=== PATIENT | female | born 1950 | race African-American/Black ===

== ENCOUNTER 2020-02-19 19:35 | Inpatient (IN) | payer MEDICARE, MEDICAID ==
[~2020-02-19] VITALS: Ht 180.3 cm; Wt 107.0 kg
--- NOTE | 2020-02-19 20:04 | Emergency Room Report ---
History of Present Illness General Chief Complaint: Palpitations Source: Patient Present Illness HPI 69-year-old female with history of lung cancer here with palpitations. The patient says that she was walking from her bathroom when she felt sudden onset of palpitations. The patient wears a pulse ox monitor that also has a heart rate monitor on it and says that her heart rate read 200 bpm. Says she had this before years ago and it resolved spontaneously. Patient says that this episode lasted several minutes before self resolving. Denies fevers, chills, chest pain, cough, shortness of breath, back pain, abdominal pain, nausea, vomiting, diarrhea, dysuria. 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: No Patient History Now: No Nursing Documentation-PMH Hx Cardiac Problems: Yes - 2 stents in 2019 Hx Hypertension: Yes Hx COPD: Yes Review of Systems All Other Systems: negative except mentioned in HPI Physical Exam Vital Signs Date Time Temp Pulse Resp B/P (MAP) Pulse Ox O2 Delivery O2 Flow Rate FiO2 02/19/20 19:36 97.9 129 20 182/93 (122) 97 Room Air Sp02 EP Interpretation: reviewed, normal General Appearance: no apparent distress, alert, non-toxic Head: normocephalic, atraumatic Eyes: bilateral eye normal inspection, bilateral eye PERRL ENT: hearing grossly normal, normal pharynx, no angioedema, normal voice Neck: full range of motion, supple/symm/no masses Respiratory: chest non-tender, lungs clear, normal breath sounds, speaking full sentences, other - Diffuse crackles in all lung felix Cardiovascular #1: no edema, other - Tachycardic 123 beats per minute. Regular rhythm Cardiovascular #2: 2+ carotid (R), 2+ carotid (L), 2+ radial (R), 2+ radial (L), 2+ dorsalis pedis (R), 2+ dorsalis pedis (L) Gastrointestinal: normal bowel sounds, non tender, soft, non-distended, no guarding, no rebound Rectal: deferred Genitourinary: normal inspection, no CVA tenderness Musculoskeletal: back normal, normal range of motion, gait/station normal, non- tender Neurologic: alert, motor strength/tone normal, oriented x3, sensory intact, responsive, speech normal Psychiatric: judgement/insight normal, memory normal, mood/affect normal, no suicidal/homicidal ideation Lymphatic: no adenopathy Medical Decision Making Diagnostic Impression: Primary Impression: Low oxygen saturation Additional Impressions: Palpitations Pulmonary nodules ER Course Total critical care time: Approximately 45 minutes Due to a high probability of clinically significant, life threatening deterioration, the patient required the highest level of preparedness to intervene emergently and I personally spent this critical care time directly and personally managing the patient. This critical care time included obtaining a history, examining the patient, pulse oximetry, ordering and reviewing studies, ordering treatments, evaluating response to treatment and updating management plan as needed, frequent reassessment and discussion with other providers as well as arranging for ultimate disposition. This critical to care time was performed to assess and manage the high probability of life-threatening deterioration that could result in multiorgan failure. This critical care time is separate from the separately billable procedures and treating other patients. EKG: Sinus rhythm, no ischemia, intervals WNL. No ectopy. Rate 123 bpm Rhythm strip: patient monitored for arrhythmias - no malignant dysrhythmias, runs of PVCs, nor pauses noted Laboratory Tests Test 02/19/20 19:50 White Blood Count 11.8 K/UL (4.8-10.8) H Red Blood Count 4.21 M/UL (4.20-5.40) Hemoglobin 10.7 G/DL (12.0-16.0) L Hematocrit 34.4 % (37.0-47.0) L Mean Corpuscular Volume 82 FL (80-99) Mean Corpuscular Hemoglobin 25.3 PG (27.0-31.0) L Mean Corpuscular Hemoglobin Concent 31.1 G/DL (32.0-36.0) L Red Cell Distribution Width 18.8 % (11.6-14.8) H Platelet Count 264 K/UL (150-450) Mean Platelet Volume 9.1 FL (6.5-10.1) Neutrophils (%) (Auto) 68.0 % (45.0-75.0) Lymphocytes (%) (Auto) 24.1 % (20.0-45.0) Monocytes (%) (Auto) 5.4 % (1.0-10.0) Eosinophils (%) (Auto) 1.4 % (0.0-3.0) Basophils (%) (Auto) 1.1 % (0.0-2.0) D-Dimer Pending Sodium Level 140 MMOL/L (136-145) Potassium Level 4.4 MMOL/L (3.5-5.1) Chloride Level 105 MMOL/L (98-107) Carbon Dioxide Level 27 MMOL/L (21-32) Anion Gap 8 mmol/L (5-15) Blood Urea Nitrogen 20 mg/dL (7-18) H Creatinine 1.8 MG/DL (0.55-1.30) H Estimated Glomerular Filtration Rate 33.9 mL/min (>60) Glucose Level 128 MG/DL (74-106) H Calcium Level 8.9 MG/DL (8.5-10.1) Total Bilirubin 0.2 MG/DL (0.2-1.0) Aspartate Amino Transferase (AST) 17 U/L (15-37) Alanine Aminotransferase (ALT) 17 U/L (12-78) Alkaline Phosphatase 99 U/L (46-116) Troponin I 0.000 ng/mL (0.000-0.056) Total Protein 8.2 G/DL (6.4-8.2) Albumin 3.2 G/DL (3.4-5.0) L Globulin 5.0 g/dL Albumin/Globulin Ratio 0.6 (1.0-2.7) L Chest x-ray: Indication shortness of breath: Many pulmonary nodules scattered throughout bilateral lung felix with some mild pulmonary vascular congestion. No consolidations. No bony abnormalities. No free air under the diaphragm 69-year-old female with a known history of lung and ovarian cancer here with palpitations and shortness of breath. Patient says that she was on oxygen monitor at home and said that she felt the sudden onset of palpitations at her monitor said that her heart rate was around 200 bpm. This lasted for few minutes before self resolving. Here in the emergency department the patient had a heart rate of 120 to 130 bpm. This was normal sinus rhythm. Patient was given 1 L of IV normal saline with good resolution of her tachycardia. Blood pressure remained stable throughout her stay in the emergency department. Patient says that she wears oxygen monitor because she frequently has desaturations. Here in the emergency department the patient had a desaturation into the high 60s. She was immediately put on a 5 L nasal cannula with good resolution of her hypoxia. Patient says that this does happen frequently to her. During this episode she did not exhibit any acute distress and the rest of her vital signs remained stable. Troponin negative. CBC and CMP were largely unremarkable. EKG was normal aside from the sinus tachycardia. Patient admitted to telemetry. Last Vital Signs Date Time Temp Pulse Resp B/P (MAP) Pulse Ox O2 Delivery O2 Flow Rate FiO2 02/19/20 19:36 97.9 129 20 182/93 (122) 97 Room Air Avinash Lenz M.D. Feb 19, 2020 20:04
[2020-02-19 20:19] LABS: CALCIUM 8.9 MG/DL (8.5-10.1); CREATININE 1.8 MG/DL (0.55-1.30); POTASSIUM 4.4 MMOL/L (3.5-5.1)
[2020-02-19 20:24] LABS: ALBUMIN 3.2 G/DL (3.4-5.0); ALBUMIN/GLOBULIN RATIO 0.6 (1.0-2.7); BILIRUBIN,TOTAL 0.2 MG/DL (0.2-1.0)
[2020-02-19 20:26] VITALS: BP 152/78
[2020-02-19 20:43] LABS: BASOPHILS % (AUTO) 1.1 % (0.0-2.0); EOSINOPHILS % (AUTO) 1.4 % (0.0-3.0); HEMATOCRIT 34.4 % (37.0-47.0); HEMOGLOBIN 10.7 G/DL (12.0-16.0); LYMPHOCYTES % (AUTO) 24.1 % (20.0-45.0); MEAN CORPUSCULAR VOLUME 82 FL (80-99); MONOCYTES % (AUTO) 5.4 % (1.0-10.0); PLATELET COUNT 264 K/UL (150-450); RED BLOOD COUNT 4.21 M/UL (4.20-5.40); RED CELL DISTRIBUTION WIDTH 18.8 % (11.6-14.8); WHITE BLOOD COUNT 11.8 K/UL (4.8-10.8)
[2020-02-19 21:40] VITALS: BP 148/76
[2020-02-19] MEDS ORDERED: CRESTOR40 MG ORAL (21:54)
[2020-02-19] MEDS ORDERED: ASPIRIN81 MG ORAL (21:54)
[2020-02-19] MEDS ORDERED: GABAPENTIN600 MG ORAL (21:54)
[2020-02-19] MEDS ORDERED: GLIPIZIDE5 MG ORAL (21:54)
[2020-02-19] MEDS ORDERED: Heparin 5000 units/ml inj SUBQ SCH (22:00)
[2020-02-19] MEDS ORDERED: oxyCODONE HCL/Acetaminophen 5/325mg ORAL ONE (22:15)
[2020-02-20] MEDS: HYDROcodone/Acetamin 5/325 tab ORAL PRN ×2 (03:45→10:48)
[2020-02-20 04:00] VITALS: BP 139/69
[2020-02-20] MEDS ORDERED: Heparin 25,000u/D5W 500ml 500 ML IV SCH ×2 (05:15→15:30)
[2020-02-20 05:43] LABS: BASOPHILS % (AUTO) 4.7 % (0.0-2.0); EOSINOPHILS % (AUTO) 1.2 % (0.0-3.0); HEMATOCRIT 37.3 % (37.0-47.0); HEMOGLOBIN 10.8 G/DL (12.0-16.0); LYMPHOCYTES % (AUTO) 13.4 % (20.0-45.0); MEAN CORPUSCULAR VOLUME 86 FL (80-99); MONOCYTES % (AUTO) 8.4 % (1.0-10.0); NEUTROPHILS % (AUTO) 72.3 % (45.0-75.0); PLATELET COUNT 225 K/UL (150-450); RED BLOOD COUNT 4.31 M/UL (4.20-5.40); RED CELL DISTRIBUTION WIDTH 18.2 % (11.6-14.8); WHITE BLOOD COUNT 9.8 K/UL (4.8-10.8)
[2020-02-20] MEDS: GlipiZIDE 5mg tab ORAL SCH ×3 (06:01→16:57)
[2020-02-20 08:00] VITALS: BP 146/70
[2020-02-20] MEDS: dilTIAZem HCl 60mg tab ORAL SCH ×3 (08:21→16:56)
[2020-02-20] MEDS: Aspirin Baby 81mg ORAL SCH (08:21)
[2020-02-20] MEDS ORDERED: Aspirin Baby 81mg ORAL SCH (09:00)
[2020-02-20 11:49] VITALS: BP 148/77
--- NOTE | 2020-02-20 12:14 | Cardiac Electrophysiology PN ---
Subjective Subjective [id number] Objective Last 24 Hour Vital Signs Date Time Temp Pulse Resp B/P (MAP) Pulse Ox O2 Delivery O2 Flow Rate FiO2 02/20/20 11:49 97.5 60 18 148/77 (100) 94 02/20/20 11:15 98.1 02/20/20 09:00 Nasal Cannula 2.0 02/20/20 08:21 87 146/70 02/20/20 08:00 80 02/20/20 08:00 98.1 84 18 146/70 (95) 97 02/20/20 04:00 71 02/20/20 04:00 97.3 79 20 139/69 (92) 97 02/20/20 01:24 97.9 93 18 134/84 98 Nasal Cannula 02/20/20 01:07 Nasal Cannula 2.0 02/19/20 22:46 97.9 02/19/20 21:40 97.9 93 18 148/76 98 Nasal Cannula 02/19/20 20:26 97.9 105 23 152/78 98 Nasal Cannula 02/19/20 19:36 97.9 129 20 182/93 (122) 97 Room Air Intake and Output 02/19/20 02/20/20 19:00 07:00 # Voids 1 Laboratory Tests Test 02/19/20 19:50 02/20/20 02:37 White Blood Count 11.8 K/UL (4.8-10.8) H 9.8 K/UL (4.8-10.8) Red Blood Count 4.21 M/UL (4.20-5.40) 4.31 M/UL (4.20-5.40) Hemoglobin 10.7 G/DL (12.0-16.0) L 10.8 G/DL (12.0-16.0) L Hematocrit 34.4 % (37.0-47.0) L 37.3 % (37.0-47.0) Mean Corpuscular Volume 82 FL (80-99) 86 FL (80-99) Mean Corpuscular Hemoglobin 25.3 PG (27.0-31.0) L 25.0 PG (27.0-31.0) L Mean Corpuscular Hemoglobin Concent 31.1 G/DL (32.0-36.0) L 29.0 G/DL (32.0-36.0) L Red Cell Distribution Width 18.8 % (11.6-14.8) H 18.2 % (11.6-14.8) H Platelet Count 264 K/UL (150-450) 225 K/UL (150-450) Mean Platelet Volume 9.1 FL (6.5-10.1) 9.2 FL (6.5-10.1) Neutrophils (%) (Auto) 68.0 % (45.0-75.0) 72.3 % (45.0-75.0) Lymphocytes (%) (Auto) 24.1 % (20.0-45.0) 13.4 % (20.0-45.0) L Monocytes (%) (Auto) 5.4 % (1.0-10.0) 8.4 % (1.0-10.0) Eosinophils (%) (Auto) 1.4 % (0.0-3.0) 1.2 % (0.0-3.0) Basophils (%) (Auto) 1.1 % (0.0-2.0) 4.7 % (0.0-2.0) H D-Dimer 0.56 mg/L FEU (0.00-0.49) H Sodium Level 140 MMOL/L (136-145) Potassium Level 4.4 MMOL/L (3.5-5.1) Chloride Level 105 MMOL/L (98-107) Carbon Dioxide Level 27 MMOL/L (21-32) Anion Gap 8 mmol/L (5-15) Blood Urea Nitrogen 20 mg/dL (7-18) H Creatinine 1.8 MG/DL (0.55-1.30) H Estimat Glomerular Filtration Rate 33.9 mL/min (>60) Glucose Level 128 MG/DL (74-106) H Calcium Level 8.9 MG/DL (8.5-10.1) Total Bilirubin 0.2 MG/DL (0.2-1.0) Aspartate Amino Transf (AST/SGOT) 17 U/L (15-37) Alanine Aminotransferase (ALT/SGPT) 17 U/L (12-78) Alkaline Phosphatase 99 U/L (46-116) Troponin I 0.000 ng/mL (0.000-0.056) Total Protein 8.2 G/DL (6.4-8.2) Albumin 3.2 G/DL (3.4-5.0) L Globulin 5.0 g/dL Albumin/Globulin Ratio 0.6 (1.0-2.7) L Prothrombin Time 11.0 SEC (9.30-11.50) Prothromb Time International Ratio 1.0 (0.9-1.1) Activated Partial Thromboplast Time 32 SEC (23-33) Microbiology Date/Time Source Procedure Growth Status 02/19/20 21:30 Nasopharynx SARS-CoV-2 RdRp Gene Assay - Final Complete Cuco Garcia MD Feb 20, 2020 12:14
[2020-02-20] MEDS ORDERED: PENTOXIFYLLINE400 M1 ORAL (14:31)
[2020-02-20] MEDS ORDERED: ASPIRIN-LOW81 MG ORAL (14:31)
[2020-02-20] MEDS ORDERED: GABAPENTIN600 MG ORAL (14:31)
[2020-02-20] MEDS ORDERED: PERCOCET 5-3251 EACH ORAL (14:31)
[2020-02-20] MEDS ORDERED: CLOPIDOGREL75 MG ORAL (14:31)
[2020-02-20] MEDS ORDERED: DIAZEPAM10 MG ORAL (14:31)
[2020-02-20] MEDS ORDERED: NATEGLINIDE60 MG ORAL (14:31)
[2020-02-20] MEDS ORDERED: VITAMIN D250 MC1 ORAL (14:31)
[2020-02-20] MEDS ORDERED: PRAVASTATIN SOD80 M1 ORAL (14:31)
[2020-02-20] MEDS ORDERED: OMEPRAZOLE20 M4 ORAL (14:31)
[2020-02-20] MEDS ORDERED: METOPROLOL TART25 MG ORAL (14:31)
[2020-02-20] MEDS ORDERED: GLIPIZIDE5 MG ORAL (14:31)
--- NOTE | 2020-02-20 15:29 | Diagnostic Imaging Report ---
Indication: Shortness of breath Technique: One view of the chest Comparison: 01/23/2016 Findings: Lungs and pleural spaces are clear. Heart size is normal. No significant change Impression: No acute process
[2020-02-20 15:55] VITALS: BP 120/59
[2020-02-20] MEDS: oxyCODONE HCL/Acetaminophen 5/325mg ORAL PRN ×2 (16:57→23:23)
--- NOTE | 2020-02-20 17:30 | History and Physical Report ---
DATE OF ADMISSION: 02/19/2020 HISTORY OF PRESENT ILLNESS: This is a 69-year-old female came with palpitation for few days prior to admission. Patient denies any fever or chills. Patient was found AFib with rapid ventricular rate with heart rates over 200, given adenosine and the heart rate is controlled. Patient is currently doing better. No distress. PAST MEDICAL HISTORY: Significant for coronary artery disease, AFib, diabetes. MEDICATIONS: Patient is on Lipitor, diltiazem, gabapentin, glipizide, aspirin, Neurontin. SOCIAL HISTORY: Patient lives by herself. Quit smoking about a few years ago. REVIEW OF SYSTEMS: Generalized weakness, tired. Recurrent palpitation in the bed. Overweight. PHYSICAL EXAMINATION: VITAL SIGNS: Blood pressure is 148/77, pulse 67, respirations 18, temperature 97.5. HEENT: AT/NC. Mild PERRLA. NECK: Supple. No JVD. CHEST: Bilateral decreased breath sounds. CARDIOVASCULAR: Regular rhythm. Tachycardia is resolved. ABDOMEN: Soft. Positive bowel sounds. EXTREMITIES: No edema. GENITOURINARY: Deferred. LABORATORY DATA: White count 12,000, hemoglobin 11, hematocrit 37, platelets are 225. Chemistry panel, sodium 140, potassium 4.4, BUN 20, creatinine 1.8. Troponins are negative. Albumin is 3.2. EKG, AFib with rapid ventricular rate. Chest x-ray showing no acute disease. Her arterial studies because patient was complaining pain on both legs. Common femoral artery normal limits bilaterally. Mild inflow disease bilaterally. ASSESSMENT: 1. AFib with rapid ventricular rate. 2. Hypertension. 3. Hyperlipidemia. 4. Leg pain. PLAN: We will currently continue current treatment. Continue Lipitor, oxycodone, gabapentin, aspirin, diltiazem, glipizide. Consider Cardiology consult. Patient probably may need a stress test. Stefano Cadena M.D. DR: MÓNICA JOB#: [id number] CC:
--- NOTE | 2020-02-20 19:00 | Consultation ---
DATE OF CONSULTATION: 02/20/2020 CARDIOLOGY CONSULTATION CONSULTING PHYSICIAN: Cuco Garcia MD. REFERRING PHYSICIAN: Ajit Cadena MD. REASON FOR CONSULTATION: Tachycardia with heart rate up to 200. HISTORY OF PRESENT ILLNESS: The patient is a 69-year-old lady with history of hypertension and lung cancer, who is scheduled to undergo lymph node biopsy by Dr. Iván Shepard on at [facility]. The patient also stated that she had a preop evaluation at [facility] [place] by Dr. Davis and underwent an echocardiogram and stress test just last week. The patient was walking from her bathroom and she suddenly felt palpitation and her pulse oximeter that showed heart rate was up to 200 beats per minute. The patient had similar episode about a year ago that was resolved. This episode lasted several minutes before it resolved. The patient in the emergency room had a heart rate of 120 to 130 beats per minute, was in sinus rhythm. She received one liter of normal saline with resolution of tachycardia. In the emergency room, the patient's blood pressure was also high as 182/93. Troponin was negative. REVIEW OF SYSTEMS: Negative other than what was mentioned in history of present illness. PAST MEDICAL HISTORY: As mentioned above. FAMILY HISTORY: Noncontributory. SOCIAL HISTORY: She does not smoke or drink alcohol. PHYSICAL EXAMINATION: VITAL SIGNS: Blood pressure of 140/77, pulse 67, respirations 18, and she is afebrile. HEAD AND NECK: Shows no JVD. LUNGS: Clear. CARDIOVASCULAR: Regular S1 and S2 with no gallop or murmur. ABDOMEN: Soft. EXTREMITIES: No pitting edema. DIAGNOSTIC DATA: Her chest x-ray showed no acute disease. ASSESSMENT AND PLAN: 1. Episodes of palpitation. Etiology is not clear at this time as it was not documented. We will watch the patient on telemetry. We will get thyroid function test and get an echocardiogram for further evaluation. In the meantime, continue the patient on Cardizem 60 mg three times daily. 2. Hyperlipidemia, on Lipitor. 3. History of lung cancer. She is scheduled for biopsy by Dr. Shepard on 03/06/2020 and had a preop evaluation at [facility] with an echo and stress test. Thank you very much for allowing me to participate in the care of this patient. Please do not hesitate to contact me for any questions regarding my evaluation. Cuco Garcia M.D. DR: Beau JOB#: [id number] CC:
[2020-02-20 20:00] VITALS: BP 121/57
[2020-02-20] MEDS: Atorvastatin 80mg tab ORAL SCH (20:47)
[2020-02-20] MEDS: Heparin 25,000u/D5W 500ml 500 ML IV SCH (23:31)
[2020-02-21] VITALS: BP 128/62
--- NOTE | 2020-02-21 | Consultation ---
DATE OF CONSULTATION: CONSULTING PHYSICIAN: Chiki George M.D. HISTORY OF PRESENT ILLNESS: This is a 69-year-old female with a history of anxiety disorder on Valium, who has been admitted to the hospital for medical stabilization. The patient is AFib. The patient also has anxiety, difficulty sleeping. She stated she takes Valium outside of the hospital. Thought content, anxiety and no suicide attempt. No psychiatric hospitalization. PAST MEDICAL HISTORY: Coronary artery disease, AFib, diabetes. ALLERGIES: No known drug allergies. SUBSTANCE ABUSE HISTORY: Significant for smoking in the past. No alcohol use. MENTAL STATUS EXAMINATION: Alert and oriented times self, place, and situation. Mood is anxious. Affect is blunted, congruent with mood. Thought process is concrete. Thought content, no suicidal or homicidal ideation. Cognition is intact. Insight and judgment is fair. ASSESSMENT: [place] I Anxiety disorder. [place] II Deferred. [place] III Diabetes. [place] IV Low. [place] V 50. PLAN: 1. We will start the patient on Valium 10 mg daily. 2. Provide the patient with reality orientation and supportive therapy. Chiki George M.D. DR: NOAH JOB#: [id number] CC:
[2020-02-21 04:00] VITALS: BP 125/64
--- NOTE | 2020-02-21 04:07 | Cardiology Report ---
APPROVED REPORT EXAM: Two-dimensional and M-mode echocardiogram with Doppler and color Doppler. INDICATION SUPRAVENTRIC TACHY M-Mode DIMENSIONS IVSd0.6 (0.7-1.1cm)Left Atrium (MM)3.5 (1.6-4.0cm) LVDd4.0 (3.5-5.6cm)Aortic Root3.1 (2.0-3.7cm) PWd1.0 (0.7-1.1cm)Aortic Cusp Exc.1.8 (1.5-2.0cm) IVSs0.9 cm LVDs2.9 (2.5-4.0cm) PWs1.5 cm <Conclusion> Normal left ventricular chamber size, systolic function and wall motion. Left ventricular ejection fraction estimated to be 55-60%. No evidence of left ventricular hypertrophy. No evidence of pericardial effusion. All other cardiac chamber sizes are within normal limits. Calcification of aortic valve with adequate cusp excursion. Thickened mitral valve leaflets with normal excursion. Mitral annulus and aortic root calcification. Pulmonic valve not well visualized. Normal tricuspid valve structure. IVC at normal size with physiologic collapse. A color flow and spectral Doppler study was performed and revealed: No aortic insufficiency. Mild mitral regurgitation. Mitral inflow indicates normal left ventricular diastolic function. Mild tricuspid regurgitation. Tricuspid systolic velocities suggests peak right ventricular systolic pressure of 44 mmHg, consistent with mild pulmonary hypertension.
--- NOTE | 2020-02-21 04:14 | Cardiology Report ---
APPROVED REPORT EKG Measurement Heart [id number] VT [id number] <Conclusion> Sinus tachycardia Nonspecific ST abnormality Abnormal ECG
[2020-02-21] MEDS: oxyCODONE HCL/Acetaminophen 5/325mg ORAL PRN ×3 (05:29→18:13)
[2020-02-21] MEDS: GlipiZIDE 5mg tab ORAL SCH ×3 (05:29→17:27)
[2020-02-21 06:01] LABS: CREATININE 1.6 MG/DL (0.55-1.30); POTASSIUM 4.3 MMOL/L (3.5-5.1)
[2020-02-21 08:00] VITALS: BP 129/72
[2020-02-21] MEDS: Aspirin Baby 81mg ORAL SCH (08:08)
[2020-02-21] MEDS: dilTIAZem HCl 60mg tab ORAL SCH ×3 (08:08→17:27)
--- NOTE | 2020-02-21 08:58 | General Progress Note ---
Subjective Allergies: Coded Allergies: No Known Allergies (Unverified , 07/29/12) Subjective sob better Objective Last 24 Hour Vital Signs Date Time Temp Pulse Resp B/P (MAP) Pulse Ox O2 Delivery O2 Flow Rate FiO2 02/21/20 08:08 76 124/74 02/21/20 04:00 60 02/21/20 04:00 98.1 81 20 125/64 (84) 95 02/21/20 00:00 63 02/21/20 00:00 99.8 63 20 128/62 (84) 95 02/20/20 21:00 Nasal Cannula 2.0 02/20/20 20:00 72 02/20/20 20:00 96.4 72 20 121/57 (78) 95 02/20/20 17:25 98.1 02/20/20 16:56 79 120/59 02/20/20 16:00 76 02/20/20 15:55 98.1 79 18 120/59 (79) 97 02/20/20 12:55 67 148/77 02/20/20 12:00 67 02/20/20 11:49 97.5 60 18 148/77 (100) 94 02/20/20 11:15 98.1 02/20/20 09:00 Nasal Cannula 2.0 Intake and Output 02/20/20 02/21/20 19:00 07:00 Intake Total 950 ml 149.8 ml Output Total 1150 ml Balance -200 ml 149.8 ml Intake Oral 950 ml IV Total 149.8 ml Output Urine Total 1150 ml # Voids 2 Laboratory Tests 02/20/20 12:45: Activated Partial Thromboplast Time > 150*H 02/20/20 21:20: Activated Partial Thromboplast Time > 150*H 02/21/20 04:50: Activated Partial Thromboplast Time 83H, Sodium Level 138, Potassium Level 4.3, Chloride Level 104, Carbon Dioxide Level 28, Anion Gap 6, Blood Urea Nitrogen 15, Creatinine 1.6H, Estimat Glomerular Filtration Rate 38.9, Glucose Level 93, Calcium Level 9.0, Troponin I 0.003, Pro-B-Type Natriuretic Peptide 237H, Thyroid Stimulating Hormone (TSH) 0.998, Free Thyroxine 1.34 Height (Feet): 5 Height (Inches): 11.00 Weight (Pounds): 236 General Appearance: alert EENT: PERRL/EOMI Neck: supple Cardiovascular: regular rhythm Respiratory/Chest: crackles/rales Abdomen: non tender, soft Extremities: non-tender Edema: trace edema Skin: warm/dry Assessment/Plan Assessment/Plan: 1 chf 2 copd 3 htn 4djd cardiac w/u in progress cont current tx fluid and salt restriction Ajit Cadena MD Feb 21, 2020 08:58
[2020-02-21] MEDS ORDERED: BREO ELLIPTA 21 EACH IH (09:37)
[2020-02-21] MEDS ORDERED: SPIRIVA18 MCG INH (09:37)
[2020-02-21 12:00] VITALS: BP 120/67
--- NOTE | 2020-02-21 15:50 | Cardiac Electrophysiology PN ---
Assessment/Plan Assessment/Plan 1. Episodes of palpitation/ SVT at rate 200?. Etiology is not clear at this time as it was not documented. We will watch the patient on telemetry. EF 60% On Cardizem 60 mg three times daily. 2. Hyperlipidemia, on Lipitor. 3. History of lung cancer. She is scheduled for biopsy by Dr. Shepard on 03/06/2020 and had a preop evaluation at [facility] with an echo and stress test.FU with hem/onc DW RN Subjective Subjective Alert in NAD. No CP or SOB. No recurrence of SVT Objective Last 24 Hour Vital Signs Date Time Temp Pulse Resp B/P (MAP) Pulse Ox O2 Delivery O2 Flow Rate FiO2 02/21/20 12:15 79 120/74 02/21/20 12:00 69 02/21/20 12:00 98.3 79 19 120/67 (84) 95 02/21/20 09:00 Nasal Cannula 2.0 02/21/20 08:08 76 124/74 02/21/20 08:00 97.7 77 20 129/72 (91) 95 02/21/20 08:00 67 02/21/20 04:00 60 02/21/20 04:00 98.1 81 20 125/64 (84) 95 02/21/20 00:00 63 02/21/20 00:00 99.8 63 20 128/62 (84) 95 02/20/20 21:00 Nasal Cannula 2.0 02/20/20 20:00 72 02/20/20 20:00 96.4 72 20 121/57 (78) 95 02/20/20 17:25 98.1 02/20/20 16:56 79 120/59 02/20/20 16:00 76 02/20/20 15:55 98.1 79 18 120/59 (79) 97 Intake and Output 02/20/20 02/21/20 19:00 07:00 Intake Total 950 ml 149.8 ml Output Total 1150 ml Balance -200 ml 149.8 ml Intake Oral 950 ml IV Total 149.8 ml Output Urine Total 1150 ml # Voids 2 Laboratory Tests Test 02/20/20 21:20 02/21/20 04:50 Activated Partial Thromboplast Time > 150 SEC (23-33) *H 83 SEC (23-33) H Sodium Level 138 MMOL/L (136-145) Potassium Level 4.3 MMOL/L (3.5-5.1) Chloride Level 104 MMOL/L (98-107) Carbon Dioxide Level 28 MMOL/L (21-32) Anion Gap 6 mmol/L (5-15) Blood Urea Nitrogen 15 mg/dL (7-18) Creatinine 1.6 MG/DL (0.55-1.30) H Estimat Glomerular Filtration Rate 38.9 mL/min (>60) Glucose Level 93 MG/DL (74-106) Calcium Level 9.0 MG/DL (8.5-10.1) Troponin I 0.003 ng/mL (0.000-0.056) Pro-B-Type Natriuretic Peptide 237 pg/mL (0-125) H Thyroid Stimulating Hormone (TSH) 0.998 uiU/mL (0.358-3.740) Free Thyroxine 1.34 NG/DL (0.76-1.46) Microbiology Date/Time Source Procedure Growth Status 02/19/20 21:30 Nasopharynx SARS-CoV-2 RdRp Gene Assay - Final Complete Objective HEAD AND NECK: Shows no JVD. LUNGS: Clear. CARDIOVASCULAR: Regular S1 and S2 with no gallop or murmur. ABDOMEN: Soft. EXTREMITIES: No pitting edema. Cuco Garcia MD Feb 21, 2020 15:49
[2020-02-21 16:00] VITALS: BP 125/71
--- NOTE | 2020-02-21 19:00 | Consultation ---
DATE OF CONSULTATION: 02/21/2020 PULMONARY CONSULTATION REASON FOR CONSULTATION: Lung mass, history of advanced COPD. HISTORY OF PRESENT ILLNESS: This is a 69-year-old female who presents with palpitations. The patient was admitted on 02/19/2020. The patient denied any fevers or chills. She was found to have rapid atrial fibrillation. The patient is now better rate controlled. The patient's care was discussed and reviewed. The patient does have a long-standing history of lung disease, recently found to have a lung mass as well as a pelvic mass and was planned to have intervention. The patient does have evidence of cancer by CT-guided biopsy. Care was discussed and reviewed, and I was asked to evaluate as well and to assess the patient further. The patient was seen by Cardiology last week. The patient has had intermittent palpitations, ongoing shortness of breath. The patient does have oxygen as well at home. The patient's medications were reviewed, and the patient's prior chart was also reviewed. now for some time. PAST MEDICAL HISTORY: Notable for hypertension, acid reflux, history of lung cancer in 2005, now with recurrence, neuropathy, history of palpitations in the past, hypoxemia, underlying history of COPD, pulmonary hypertension, pelvic mass. MEDICATIONS: Reviewed. ALLERGIES: Reviewed. SOCIAL HISTORY: The patient is a former smoker, half pack per day, smoked for 40 years, quit in 2016. The patient does not smoker or drink currently. She is . REVIEW OF SYSTEMS: All 10 points reviewed and otherwise negative. FAMILY HISTORY: Discussed and reviewed. PAST SURGICAL HISTORY: Notable for left foot toe amputation and prior history of stent for coronary artery disease, vascular bypass. PHYSICAL EXAMINATION: GENERAL: A well-developed female, appears slightly older than stated age. VITAL SIGNS: Reviewed. Blood pressure 125/71, pulse 65, respirations 18, sats 95%, temperature 98.1. The patient is on 2 L. HEENT: Negative. NECK: Supple. No adenopathy. LUNGS: Moderate air entry, overall reduced. CARDIAC: S1, S2. Regular rate and rhythm without murmurs, rubs, or gallops. ABDOMEN: Soft, nontender. EXTREMITIES: No cyanosis, clubbing, or edema. NEUROLOGIC: Grossly nonfocal. LABORATORY DATA: Reviewed. White cell count 9.8, hemoglobin 10. Chemistries noted. Creatinine 1.6. BNP 237, albumin 3.2. Chest x-ray is negative. IMPRESSION: Known history of COPD, history of hypoxemia, dysrhythmias, hyperlipidemia, lung mass, pelvic mass. RECOMMENDATIONS: At present, we will continue oxygen as needed. Provide baseline inhalers, I will prescribe. Await further cardiology recommendations, and we will follow the patient after discharge. The patient was taking Breo and Spiriva and will resume. Mauro Austin M.D. DR: ADRY JOB#: [id number] CC:
[2020-02-21 20:00] VITALS: BP 130/86
[2020-02-21] MEDS: Atorvastatin 80mg tab ORAL SCH (21:06)
--- NOTE | 2020-02-21 22:46 | Psychiatric Progress Note ---
Psychiatry Progress Note Psychiatry Progress Note Medications Current Medications Medications (Trade) Dose Ordered Sig/Brijesh Route PRN Reason Start Time Stop Time Status Last Admin Dose Admin Aspirin (ASA) 81 mg DAILY ORAL 02/20/20 09:00 04/05/20 08:59 02/21/20 08:08 Atorvastatin Calcium (Lipitor) 80 mg BEDTIME ORAL 02/20/20 21:00 05/20/20 20:59 02/21/20 21:06 Diazepam (Valium) 10 mg DAILY PRN ORAL For Anxiety 02/20/20 23:15 02/27/20 23:14 Diltiazem HCl (Cardizem Tab) 60 mg TID ORAL 02/20/20 09:00 03/21/20 08:59 02/21/20 17:27 Famotidine (Pepcid) 20 mg Q6H PRN ORAL Indigestion 02/21/20 17:45 05/21/20 17:44 02/21/20 18:13 Fluticasone/ Vilanterol (Breo Ellipta 200/25) 1 puffs DAILY INH 02/22/20 09:00 05/22/20 08:59 Gabapentin (Neurontin) 300 mg BID ORAL 02/20/20 09:00 03/21/20 08:59 02/21/20 17:28 Glipizide (Glucotrol) 5 mg TIAC ORAL 02/20/20 06:30 03/21/20 06:29 02/21/20 17:27 Heparin Sodium/ Dextrose 500 ml @ 21.4 mls/hr ADJUST PER PROTOCOL IV 02/20/20 23:30 03/21/20 23:29 02/20/20 23:31 Oxycodone/ Acetaminophen (Percocet 5-325) 1 tab Q6H PRN ORAL Severe Pain (Pain Scale 7-10) 02/20/20 12:45 02/27/20 12:44 02/21/20 18:13 Tiotropium [place] (Spiriva Inhaler) 1 puff DAILY INH 02/22/20 09:00 03/23/20 08:59 Neurological/Psychiatric: Reports: anxiety, depressed, emotional problems Allergies: Coded Allergies: No Known Allergies (Unverified , 07/29/12) Objective Data Height (Feet): 5 Height (Inches): 11.00 Weight (Pounds): 236 General Appearance: alert Additional Comments: Alert and oriented times self, place, and situation. Mood is anxious. Affect is blunted, congruent with mood. Thought process is concrete. Thought content, no suicidal or homicidal ideation. Cognition is intact. Insight and judgment is fair. Assessment/Plan Assessment/Plan: ASSESSMENT: [place] I Anxiety disorder. [place] II Deferred. [place] III Diabetes. [place] IV Low. [place] V 50. PLAN: 1. We will start the patient on Valium 10 mg daily. 2. Provide the patient with reality orientation and supportive therapy. Chiki George MD Feb 21, 2020 22:46
[2020-02-21] MEDS: Heparin 25,000u/D5W 500ml 500 ML IV SCH (22:59)
[2020-02-22] VITALS: BP 122/74
[2020-02-22] MEDS: oxyCODONE HCL/Acetaminophen 5/325mg ORAL PRN ×4 (02:56→21:24)
[2020-02-22 04:00] VITALS: BP 122/64
[2020-02-22] MEDS: GlipiZIDE 5mg tab ORAL SCH ×3 (05:45→17:14)
[2020-02-22] MEDS ORDERED: Milk of Magnesia 30ml Ud ORAL PRN (06:45)
[2020-02-22 08:00] VITALS: BP 121/67
--- NOTE | 2020-02-22 08:36 | Pulmonology Progress Note ---
Subjective Allergies: Coded Allergies: No Known Allergies (Unverified , 07/29/12) Subjective no sob on heparin care noted Objective Last 24 Hour Vital Signs Date Time Temp Pulse Resp B/P (MAP) Pulse Ox O2 Delivery O2 Flow Rate FiO2 02/22/20 04:00 59 02/22/20 04:00 97.3 73 18 122/64 (83) 96 02/22/20 00:00 97.0 68 18 122/74 (90) 95 02/22/20 00:00 59 02/21/20 21:00 Nasal Cannula 2.0 02/21/20 20:00 98.2 75 18 130/86 (101) 95 02/21/20 20:00 71 02/21/20 18:58 97 Nasal Cannula 2.0 28 02/21/20 18:43 98.1 02/21/20 17:27 88 125/71 02/21/20 16:00 88 02/21/20 16:00 98.1 65 19 125/71 (89) 95 02/21/20 12:15 79 120/74 02/21/20 12:00 69 02/21/20 12:00 98.3 79 19 120/67 (84) 95 02/21/20 09:00 Nasal Cannula 2.0 Intake and Output 02/21/20 02/22/20 19:00 07:00 Intake Total 1217.5 ml 630.16 ml Balance 1217.5 ml 630.16 ml Intake Oral 950 ml 480 ml IV Total 267.5 ml 150.16 ml # Voids 5 3 Objective WDWN NAD reduced breath sounds bilaterally without rhonchi or wheeze [id number] without MRG NABS nontender no HSM no CCE nonfocal Microbiology Date/Time Source Procedure Growth Status 02/19/20 21:30 Nasopharynx SARS-CoV-2 RdRp Gene Assay - Final Complete Laboratory Tests 02/22/20 03:57: Activated Partial Thromboplast Time 68H Current Medications Medications (Trade) Dose Ordered Sig/Brijesh Route PRN Reason Start Time Stop Time Status Last Admin Dose Admin Aspirin (ASA) 81 mg DAILY ORAL 02/20/20 09:00 04/05/20 08:59 02/21/20 08:08 Atorvastatin Calcium (Lipitor) 80 mg BEDTIME ORAL 02/20/20 21:00 05/20/20 20:59 02/21/20 21:06 Diazepam (Valium) 10 mg DAILY PRN ORAL For Anxiety 02/20/20 23:15 02/27/20 23:14 Diltiazem HCl (Cardizem Tab) 60 mg TID ORAL 02/20/20 09:00 03/21/20 08:59 02/21/20 17:27 Famotidine (Pepcid) 20 mg Q6H PRN ORAL Indigestion 02/21/20 17:45 05/21/20 17:44 02/21/20 18:13 Fluticasone/ Vilanterol (Breo Ellipta 200/25) 1 puffs DAILY INH 02/22/20 09:00 05/22/20 08:59 Gabapentin (Neurontin) 300 mg BID ORAL 02/20/20 09:00 03/21/20 08:59 02/21/20 17:28 Glipizide (Glucotrol) 5 mg TIAC ORAL 02/20/20 06:30 03/21/20 06:29 02/22/20 05:45 Heparin Sodium/ Dextrose 500 ml @ 21.4 mls/hr ADJUST PER PROTOCOL IV 02/20/20 23:30 03/21/20 23:29 02/21/20 22:59 Magnesium Hydroxide (Mom) 30 ml BID PRN ORAL Constipation 02/22/20 06:45 03/23/20 06:44 Oxycodone/ Acetaminophen (Percocet 5-325) 1 tab Q6H PRN ORAL Severe Pain (Pain Scale 7-10) 02/20/20 12:45 02/27/20 12:44 02/22/20 02:56 Tiotropium [place] (Spiriva Inhaler) 1 puff DAILY INH 02/22/20 09:00 03/23/20 08:59 Assessment/Plan Assessment/Plan IMPRESSION: endstage COPD, history of hypoxemia, dysrhythmias, hyperlipidemia, lung mass, pelvic mass. RECOMMENDATIONS: continue oxygen as needed. Provide baseline inhalers. Await further cardiology recommendations, and we will follow the patient after discharge. The patient was taking Breo and Spiriva impression, plan, and exam edited and reviewed in detail care discussed with Mauro Mendiola MD Feb 22, 2020 08:36
[2020-02-22] MEDS: Aspirin Baby 81mg ORAL SCH (08:56)
[2020-02-22] MEDS: Breo Ellipta 200/25mcg-14 dose INH SCH (08:56)
[2020-02-22] MEDS: dilTIAZem HCl 60mg tab ORAL SCH ×3 (08:57→17:14)
[2020-02-22 12:00] VITALS: BP 131/71
--- NOTE | 2020-02-22 12:16 | General Progress Note ---
Subjective Allergies: Coded Allergies: No Known Allergies (Unverified , 07/29/12) Subjective sob better improving Objective Last 24 Hour Vital Signs Date Time Temp Pulse Resp B/P (MAP) Pulse Ox O2 Delivery O2 Flow Rate FiO2 02/22/20 09:00 Nasal Cannula 2.0 02/22/20 08:57 76 127/67 02/22/20 08:00 74 02/22/20 08:00 96.7 76 19 121/67 (85) 100 02/22/20 06:55 99 Nasal Cannula 2.0 28 02/22/20 04:00 59 02/22/20 04:00 97.3 73 18 122/64 (83) 96 02/22/20 00:00 97.0 68 18 122/74 (90) 95 02/22/20 00:00 59 02/21/20 21:00 Nasal Cannula 2.0 02/21/20 20:00 98.2 75 18 130/86 (101) 95 02/21/20 20:00 71 02/21/20 18:58 97 Nasal Cannula 2.0 28 02/21/20 18:43 98.1 02/21/20 17:27 88 125/71 02/21/20 16:00 88 02/21/20 16:00 98.1 65 19 125/71 (89) 95 02/21/20 12:15 79 120/74 Intake and Output 02/21/20 02/22/20 19:00 07:00 Intake Total 1217.5 ml 630.16 ml Balance 1217.5 ml 630.16 ml Intake Oral 950 ml 480 ml IV Total 267.5 ml 150.16 ml # Voids 5 3 Laboratory Tests 02/22/20 03:57: Activated Partial Thromboplast Time 68H Height (Feet): 5 Height (Inches): 11.00 Weight (Pounds): 236 General Appearance: alert EENT: PERRL/EOMI Neck: supple Cardiovascular: regular rhythm Respiratory/Chest: lungs clear Abdomen: non tender, soft Extremities: non-tender Assessment/Plan Assessment/Plan: 1 chf 2 copd 3 htn 4djd 5 rec lung ca pulmonary consult cardiac w/u in progress cont current tx fluid and salt restriction tranfer to mred surg Ajit Cadena MD Feb 22, 2020 12:16
[2020-02-22 16:00] VITALS: BP 135/63
--- NOTE | 2020-02-22 18:35 | Cardiac Electrophysiology PN ---
Assessment/Plan Assessment/Plan 1. Episodes of palpitation/ SVT at rate 200?. Etiology is not clear at this time as it was not documented. We will watch the patient on telemetry. EF 60% On Cardizem 60 mg three times daily.Had марина down to 50s 2. Hyperlipidemia, on Lipitor. 3. History of lung cancer. She is scheduled for biopsy by Dr. Shepard on 03/06/2020 and had a preop evaluation at [facility] with an echo and stress test.FU Dr Geovanna KLINE RN Subjective Subjective Alert in NAD. No CP or SOB. No recurrence of SVT. Had марина down to 50s Objective Last 24 Hour Vital Signs Date Time Temp Pulse Resp B/P (MAP) Pulse Ox O2 Delivery O2 Flow Rate FiO2 02/22/20 17:14 69 135/63 02/22/20 16:00 76 02/22/20 16:00 98.6 69 18 135/63 (87) 96 02/22/20 12:18 61 131/71 02/22/20 12:00 96.9 61 18 131/71 (91) 100 02/22/20 12:00 77 02/22/20 09:00 Nasal Cannula 2.0 02/22/20 08:57 76 127/67 02/22/20 08:00 74 02/22/20 08:00 96.7 76 19 121/67 (85) 100 02/22/20 06:55 99 Nasal Cannula 2.0 28 02/22/20 04:00 59 02/22/20 04:00 97.3 73 18 122/64 (83) 96 02/22/20 00:00 97.0 68 18 122/74 (90) 95 02/22/20 00:00 59 02/21/20 21:00 Nasal Cannula 2.0 02/21/20 20:00 98.2 75 18 130/86 (101) 95 02/21/20 20:00 71 02/21/20 18:58 97 Nasal Cannula 2.0 28 02/21/20 18:43 98.1 Intake and Output 02/21/20 02/22/20 19:00 07:00 Intake Total 1217.5 ml 630.16 ml Balance 1217.5 ml 630.16 ml Intake Oral 950 ml 480 ml IV Total 267.5 ml 150.16 ml # Voids 5 3 Laboratory Tests Test 02/22/20 03:57 Activated Partial Thromboplast Time 68 SEC (23-33) H Microbiology Date/Time Source Procedure Growth Status 02/19/20 21:30 Nasopharynx SARS-CoV-2 RdRp Gene Assay - Final Complete Objective HEAD AND NECK: Shows no JVD. LUNGS: Clear. CARDIOVASCULAR: Regular S1 and S2 with no gallop or murmur. ABDOMEN: Soft. EXTREMITIES: No pitting edema. Cuco Garcia MD Feb 22, 2020 18:35
[2020-02-22 20:00] VITALS: BP 133/74
[2020-02-22] MEDS: Atorvastatin 80mg tab ORAL SCH (21:02)
[2020-02-23] VITALS: BP 127/72
[2020-02-23] MEDS: oxyCODONE HCL/Acetaminophen 5/325mg ORAL PRN ×4 (03:53→23:06)
[2020-02-23 04:00] VITALS: BP 125/73
[2020-02-23] MEDS: GlipiZIDE 5mg tab ORAL SCH ×3 (05:38→16:12)
[2020-02-23 06:25] LABS: BASOPHILS % (AUTO) 8.4 % (0.0-2.0); EOSINOPHILS % (AUTO) 2.3 % (0.0-3.0); HEMATOCRIT 36.9 % (37.0-47.0); HEMOGLOBIN 10.7 G/DL (12.0-16.0); LYMPHOCYTES % (AUTO) 15.1 % (20.0-45.0); MEAN CORPUSCULAR VOLUME 88 FL (80-99); MONOCYTES % (AUTO) 8.9 % (1.0-10.0); NEUTROPHILS % (AUTO) 65.3 % (45.0-75.0); PLATELET COUNT 258 K/UL (150-450); RED BLOOD COUNT 4.21 M/UL (4.20-5.40); RED CELL DISTRIBUTION WIDTH 18.4 % (11.6-14.8); WHITE BLOOD COUNT 7.2 K/UL (4.8-10.8)
[2020-02-23 08:00] VITALS: BP 120/68
--- NOTE | 2020-02-23 08:02 | Pulmonology Progress Note ---
Subjective Allergies: Coded Allergies: No Known Allergies (Unverified , 07/29/12) Subjective no sob on heparin care noted Objective Last 24 Hour Vital Signs Date Time Temp Pulse Resp B/P (MAP) Pulse Ox O2 Delivery O2 Flow Rate FiO2 02/23/20 04:00 97.0 74 18 125/73 (90) 95 02/23/20 00:00 97.5 82 16 127/72 (90) 100 02/22/20 21:00 Nasal Cannula 3.0 02/22/20 21:00 94 Nasal Cannula 2.0 28 02/22/20 20:00 97.9 74 18 133/74 (93) 98 02/22/20 17:14 69 135/63 02/22/20 16:00 76 02/22/20 16:00 98.6 69 18 135/63 (87) 96 02/22/20 12:18 61 131/71 02/22/20 12:00 96.9 61 18 131/71 (91) 100 02/22/20 12:00 77 02/22/20 09:00 Nasal Cannula 2.0 02/22/20 08:57 76 127/67 Intake and Output 02/22/20 02/23/20 19:00 07:00 Intake Total 400 ml 300 ml Balance 400 ml 300 ml Intake Oral 400 ml 300 ml # Voids 2 1 Objective WDWN NAD reduced breath sounds bilaterally without rhonchi or wheeze [id number] without MRG NABS nontender no HSM no CCE nonfocal Laboratory Tests 02/23/20 05:07: White Blood Count 7.2, Red Blood Count 4.21, Hemoglobin 10.7L, Hematocrit 36.9L, Mean Corpuscular Volume 88, Mean Corpuscular Hemoglobin 25.4L, Mean Corpuscular Hemoglobin Concent 29.0L, Red Cell Distribution Width 18.4H, Platelet Count 258, Mean Platelet Volume 5.9L, Neutrophils (%) (Auto) 65.3, Lymphocytes (%) (Auto) 15.1L, Monocytes (%) (Auto) 8.9, Eosinophils (%) (Auto) 2.3, Basophils (%) (Auto) 8.4H Current Medications Medications (Trade) Dose Ordered Sig/Brijesh Route PRN Reason Start Time Stop Time Status Last Admin Dose Admin Aspirin (ASA) 81 mg DAILY ORAL 02/20/20 09:00 04/05/20 08:59 02/22/20 08:56 Atorvastatin [place] (Lipitor) 80 mg BEDTIME ORAL 02/20/20 21:00 05/20/20 20:59 02/22/20 21:02 Diazepam (Valium) 10 mg DAILY PRN ORAL For Anxiety 02/20/20 23:15 02/27/20 23:14 Diltiazem HCl (Cardizem Tab) 60 mg TID ORAL 02/20/20 09:00 03/21/20 08:59 02/22/20 17:14 Famotidine (Pepcid) 20 mg Q6H PRN ORAL Indigestion 02/21/20 17:45 05/21/20 17:44 02/22/20 21:02 Fluticasone/ Vilanterol (Breo Ellipta 200/25) 1 puffs DAILY INH 02/22/20 09:00 05/22/20 08:59 02/22/20 08:56 Gabapentin (Neurontin) 300 mg BID ORAL 02/20/20 09:00 03/21/20 08:59 02/22/20 17:14 Glipizide (Glucotrol) 5 mg TIAC ORAL 02/20/20 06:30 03/21/20 06:29 02/23/20 05:38 Magnesium Hydroxide (Mom) 30 ml BID PRN ORAL Constipation 02/22/20 06:45 03/23/20 06:44 Oxycodone/ Acetaminophen (Percocet 5-325) 1 tab Q6H PRN ORAL Severe Pain (Pain Scale 7-10) 02/20/20 12:45 02/27/20 12:44 02/23/20 03:53 Tiotropium [place] (Spiriva Inhaler) 1 puff DAILY INH 02/22/20 09:00 03/23/20 08:59 02/22/20 08:56 Assessment/Plan Assessment/Plan IMPRESSION: endstage COPD, history of hypoxemia, dysrhythmias, hyperlipidemia, lung mass, pelvic mass. RECOMMENDATIONS: continue oxygen as needed. Provide baseline inhalers. Await further cardiology recommendations, and we will follow the patient after discharge. The patient was taking Breo and Spiriva impression, plan, and exam edited and reviewed in detail care discussed with Mauro Mendiola MD Feb 23, 2020 08:02
[2020-02-23] MEDS: dilTIAZem HCl 60mg tab ORAL SCH ×3 (08:42→17:06)
[2020-02-23] MEDS: Aspirin Baby 81mg ORAL SCH (08:42)
[2020-02-23] MEDS: Breo Ellipta 200/25mcg-14 dose INH SCH (08:44)
--- NOTE | 2020-02-23 10:23 | CDS Physician Query ---
Clarification is required for compliance, coding accuracy, and to reflect severity of illness for this patient Dear Dr. Mauro Austin Date 02/23/2020 [employer] [employer]/JACKIE Rubio Clinical Documentation states: HNP - 69-year-old female came with palpitation for few days prior to admission. Patient denies any fever or chills. Patient was found AFib with rapid ventricular rate with heart rates over 200, given adenosine 02/22 progress note: IMPRESSION: endstage COPD, history of hypoxemia, dysrhythmias, hyperlipidemia, lung mass, pelvic mass. RECOMMENDATIONS: continue oxygen as needed. Provide baseline inhalers Please clarify if the patient had any of the following conditions based on the above clinical findings: [] Chronic Respiratory Failure [] Acute Respiratory Failure [] Acute on Chronic Respiratory Failure [] Acute Respiratory Distress [] COPD exacerbation [] Other: [] Unable to Determined Present on Admission: [] Yes [] No [] Clinically Undetermined Physician signature Date Please also document in your Progress Notes and/or Discharge Summary and indicate if the condition was present on admission. KAYCEED
--- NOTE | 2020-02-23 10:44 | General Progress Note ---
Subjective Allergies: Coded Allergies: No Known Allergies (Unverified , 07/29/12) Subjective sob better improving Objective Last 24 Hour Vital Signs Date Time Temp Pulse Resp B/P (MAP) Pulse Ox O2 Delivery O2 Flow Rate FiO2 02/23/20 08:42 86 120/68 02/23/20 08:00 97.8 86 16 120/68 (85) 93 02/23/20 04:00 97.0 74 18 125/73 (90) 95 02/23/20 00:00 97.5 82 16 127/72 (90) 100 02/22/20 21:00 Nasal Cannula 3.0 02/22/20 21:00 94 Nasal Cannula 2.0 28 02/22/20 20:00 97.9 74 18 133/74 (93) 98 02/22/20 17:14 69 135/63 02/22/20 16:00 76 02/22/20 16:00 98.6 69 18 135/63 (87) 96 02/22/20 12:18 61 131/71 02/22/20 12:00 96.9 61 18 131/71 (91) 100 02/22/20 12:00 77 Intake and Output 02/22/20 02/23/20 19:00 07:00 Intake Total 400 ml 300 ml Balance 400 ml 300 ml Intake Oral 400 ml 300 ml # Voids 2 1 Laboratory Tests 02/23/20 05:07: White Blood Count 7.2, Red Blood Count 4.21, Hemoglobin 10.7L, Hematocrit 36.9L, Mean Corpuscular Volume 88, Mean Corpuscular Hemoglobin 25.4L, Mean Corpuscular Hemoglobin Concent 29.0L, Red Cell Distribution Width 18.4H, Platelet Count 258, Mean Platelet Volume 5.9L, Neutrophils (%) (Auto) 65.3, Lymphocytes (%) (Auto) 15.1L, Monocytes (%) (Auto) 8.9, Eosinophils (%) (Auto) 2.3, Basophils (%) (Auto) 8.4H Height (Feet): 5 Height (Inches): 11.00 Weight (Pounds): 236 General Appearance: alert EENT: PERRL/EOMI Neck: supple Cardiovascular: regular rhythm Respiratory/Chest: crackles/rales Extremities: non-tender Assessment/Plan Assessment/Plan: 1 chf 2 copd 3 htn 4djd 5 rec lung ca pulmonary consult cardiac w/u in progress cont current tx fluid and salt restriction tranfer to mred surg pulmonary harden in progress Ajit Cadena MD Feb 23, 2020 10:44
[2020-02-23 12:00] VITALS: BP 122/73
--- NOTE | 2020-02-23 13:12 | Cardiac Electrophysiology PN ---
Assessment/Plan Assessment/Plan 1. Episodes of palpitation/ SVT at rate 200?. Etiology is not clear at this time as it was not documented. EF 60% On Cardizem 60 mg three times daily. 2. Hyperlipidemia, on Lipitor. 3. History of lung cancer. She is scheduled for biopsy by Dr. Shepard on 03/06/2020 and had a preop evaluation at [facility] with an echo and stress test.FU Dr Geovanna KLINE practice manager to [facility] pending Subjective Subjective Alert in NAD. No CP or SOB. No recurrence of SVT. Had марина down to 50s. Transfer to [facility] pending Objective Last 24 Hour Vital Signs Date Time Temp Pulse Resp B/P (MAP) Pulse Ox O2 Delivery O2 Flow Rate FiO2 02/23/20 12:00 97.7 75 17 122/73 (89) 98 02/23/20 09:00 Room Air 02/23/20 08:42 86 120/68 02/23/20 08:00 97.8 86 16 120/68 (85) 93 02/23/20 04:00 97.0 74 18 125/73 (90) 95 02/23/20 00:00 97.5 82 16 127/72 (90) 100 02/22/20 21:00 Nasal Cannula 3.0 02/22/20 21:00 94 Nasal Cannula 2.0 28 02/22/20 20:00 97.9 74 18 133/74 (93) 98 02/22/20 17:14 69 135/63 02/22/20 16:00 76 02/22/20 16:00 98.6 69 18 135/63 (87) 96 Intake and Output 02/22/20 02/23/20 19:00 07:00 Intake Total 400 ml 300 ml Balance 400 ml 300 ml Intake Oral 400 ml 300 ml # Voids 2 1 Laboratory Tests Test 02/23/20 05:07 White Blood Count 7.2 K/UL (4.8-10.8) Red Blood Count 4.21 M/UL (4.20-5.40) Hemoglobin 10.7 G/DL (12.0-16.0) L Hematocrit 36.9 % (37.0-47.0) L Mean Corpuscular Volume 88 FL (80-99) Mean Corpuscular Hemoglobin 25.4 PG (27.0-31.0) L Mean Corpuscular Hemoglobin Concent 29.0 G/DL (32.0-36.0) L Red Cell Distribution Width 18.4 % (11.6-14.8) H Platelet Count 258 K/UL (150-450) Mean Platelet Volume 5.9 FL (6.5-10.1) L Neutrophils (%) (Auto) 65.3 % (45.0-75.0) Lymphocytes (%) (Auto) 15.1 % (20.0-45.0) L Monocytes (%) (Auto) 8.9 % (1.0-10.0) Eosinophils (%) (Auto) 2.3 % (0.0-3.0) Basophils (%) (Auto) 8.4 % (0.0-2.0) H Objective HEAD AND NECK: Shows no JVD. LUNGS: Clear. CARDIOVASCULAR: Regular S1 and S2 with no gallop or murmur. ABDOMEN: Soft. EXTREMITIES: No pitting edema. Cuco Garcia MD Feb 23, 2020 13:12
[2020-02-23 16:14] VITALS: BP 128/74
[2020-02-23 20:00] VITALS: BP 126/70
[2020-02-23] MEDS: Atorvastatin 80mg tab ORAL SCH (20:27)
--- NOTE | 2020-02-23 23:32 | Psychiatric Progress Note ---
Psychiatry Progress Note Psychiatry Progress Note Subjective the pt is stable at baseline no behavioral issues Medications Current Medications Medications (Trade) Dose Ordered Sig/Brijesh Route PRN Reason Start Time Stop Time Status Last Admin Dose Admin Aspirin (ASA) 81 mg DAILY ORAL 02/20/20 09:00 04/05/20 08:59 02/23/20 08:42 Atorvastatin [place] (Lipitor) 80 mg BEDTIME ORAL 02/20/20 21:00 05/20/20 20:59 02/23/20 20:27 Diazepam (Valium) 10 mg DAILY PRN ORAL For Anxiety 02/20/20 23:15 02/27/20 23:14 Diltiazem HCl (Cardizem Tab) 60 mg TID ORAL 02/20/20 09:00 03/21/20 08:59 02/23/20 17:06 Famotidine (Pepcid) 20 mg Q6H PRN ORAL Indigestion 02/21/20 17:45 05/21/20 17:44 02/23/20 20:27 Fluticasone/ Vilanterol (Breo Ellipta 200/25) 1 puffs DAILY INH 02/22/20 09:00 05/22/20 08:59 02/23/20 08:44 Gabapentin (Neurontin) 300 mg BID ORAL 02/20/20 09:00 03/21/20 08:59 02/23/20 17:06 Glipizide (Glucotrol) 5 mg TIAC ORAL 02/20/20 06:30 03/21/20 06:29 02/23/20 16:12 Magnesium Hydroxide (Mom) 30 ml BID PRN ORAL Constipation 02/22/20 06:45 03/23/20 06:44 Oxycodone/ Acetaminophen (Percocet 5-325) 1 tab Q6H PRN ORAL Severe Pain (Pain Scale 7-10) 02/20/20 12:45 02/27/20 12:44 02/23/20 23:06 Tiotropium [place] (Spiriva Inhaler) 1 puff DAILY INH 02/22/20 09:00 03/23/20 08:59 02/23/20 08:44 Neurological/Psychiatric: Reports: anxiety, depressed, emotional problems Allergies: Coded Allergies: No Known Allergies (Unverified , 07/29/12) Objective Data Height (Feet): 5 Height (Inches): 11.00 Weight (Pounds): 236 General Appearance: alert, alert oriented x3 Additional Comments: Alert and oriented times self, place, and situation. Mood is anxious. Affect is blunted, congruent with mood. Thought process is concrete. Thought content, no suicidal or homicidal ideation. Cognition is intact. Insight and judgment is fair. Assessment/Plan [place] I: ASSESSMENT: [place] I Anxiety disorder. [place] II Deferred. [place] III Diabetes. [place] IV Low. [place] V 50. PLAN: 1. We will start the patient on Valium 10 mg daily. 2. Provide the patient with reality orientation and supportive therapy. Status Narrative ASSESSMENT: [place] I Anxiety disorder. [place] II Deferred. [place] III Diabetes. [place] IV Low. [place] V 50. PLAN: 1. We will start the patient on Valium 10 mg daily. 2. Provide the patient with reality orientation and supportive therapy. Assessment/Plan: ASSESSMENT: [place] I Anxiety disorder. [place] II Deferred. [place] III Diabetes. [place] IV Low. [place] V 50. PLAN: 1. We will start the patient on Valium 10 mg daily. 2. Provide the patient with reality orientation and supportive therapy. Chiki George MD Feb 23, 2020 23:32
[2020-02-24] VITALS: BP 115/60
[2020-02-24 04:00] VITALS: BP 120/67
[2020-02-24] MEDS: oxyCODONE HCL/Acetaminophen 5/325mg ORAL PRN ×2 (05:27→11:29)
[2020-02-24] MEDS: GlipiZIDE 5mg tab ORAL SCH ×2 (05:31→11:28)
[2020-02-24 08:00] VITALS: BP 116/59
[2020-02-24] MEDS: dilTIAZem HCl 60mg tab ORAL SCH ×2 (08:14→12:15)
[2020-02-24] MEDS: Breo Ellipta 200/25mcg-14 dose INH SCH (08:14)
[2020-02-24] MEDS: Aspirin Baby 81mg ORAL SCH (08:14)
--- NOTE | 2020-02-24 09:39 | Pulmonology Progress Note ---
Subjective Allergies: Coded Allergies: No Known Allergies (Unverified , 07/29/12) Subjective no sob on heparin care noted Objective Last 24 Hour Vital Signs Date Time Temp Pulse Resp B/P (MAP) Pulse Ox O2 Delivery O2 Flow Rate FiO2 02/24/20 08:14 75 116/59 02/24/20 08:00 97.3 75 20 116/59 (78) 99 02/24/20 04:00 97.8 73 20 120/67 (84) 99 02/24/20 00:00 97.6 71 18 115/60 (78) 100 02/23/20 21:00 Room Air 02/23/20 20:00 97.7 65 16 126/70 (88) 96 02/23/20 19:27 98 Nasal Cannula 2.0 28 02/23/20 17:06 79 128/74 02/23/20 16:14 98.2 79 17 128/74 (92) 97 02/23/20 13:45 75 122/73 02/23/20 12:00 97.7 75 17 122/73 (89) 98 Intake and Output 02/23/20 02/24/20 19:00 07:00 Intake Total 800 ml 500 ml Balance 800 ml 500 ml Intake Oral 800 ml 500 ml # Voids 2 3 Objective WDWN NAD reduced breath sounds bilaterally without rhonchi or wheeze [id number] without MRG NABS nontender no HSM no CCE nonfocal Current Medications Medications (Trade) Dose Ordered Sig/Brijesh Route PRN Reason Start Time Stop Time Status Last Admin Dose Admin Aspirin (ASA) 81 mg DAILY ORAL 02/20/20 09:00 04/05/20 08:59 02/24/20 08:14 Atorvastatin Calcium (Lipitor) 80 mg BEDTIME ORAL 02/20/20 21:00 05/20/20 20:59 02/23/20 20:27 Diazepam (Valium) 10 mg DAILY PRN ORAL For Anxiety 02/20/20 23:15 02/27/20 23:14 Diltiazem HCl (Cardizem Tab) 60 mg TID ORAL 02/20/20 09:00 03/21/20 08:59 02/24/20 08:14 Famotidine (Pepcid) 20 mg Q6H PRN ORAL Indigestion 02/21/20 17:45 05/21/20 17:44 02/23/20 20:27 Fluticasone/ Vilanterol (Breo Ellipta 200/25) 1 puffs DAILY INH 02/22/20 09:00 05/22/20 08:59 02/24/20 08:14 Gabapentin (Neurontin) 300 mg BID ORAL 02/20/20 09:00 03/21/20 08:59 02/24/20 08:14 Glipizide (Glucotrol) 5 mg TIAC ORAL 02/20/20 06:30 03/21/20 06:29 02/24/20 05:31 Magnesium Hydroxide (Mom) 30 ml BID PRN ORAL Constipation 02/22/20 06:45 03/23/20 06:44 Oxycodone/ Acetaminophen (Percocet 5-325) 1 tab Q6H PRN ORAL Severe Pain (Pain Scale 7-10) 02/20/20 12:45 02/27/20 12:44 02/24/20 05:27 Tiotropium [place] (Spiriva Inhaler) 1 puff DAILY INH 02/22/20 09:00 03/23/20 08:59 02/24/20 08:14 Assessment/Plan Assessment/Plan IMPRESSION: endstage COPD, history of hypoxemia, dysrhythmias, hyperlipidemia, lung mass, pelvic mass. RECOMMENDATIONS: ok to dc per pulmonary has oxygen and inhalers at home followed by oncology and had biopsy and confirmed lung cancer followed by local telephone operator for pelvic mass cardiology clearance impression, plan, and exam edited and reviewed in detail care discussed with Mauro Mendiola MD Feb 24, 2020 09:39
[2020-02-24 12:00] VITALS: BP 116/69
[2020-02-24 12:15] VITALS: BP 116/69
--- NOTE | 2020-02-24 13:24 | General Progress Note ---
Subjective Allergies: Coded Allergies: No Known Allergies (Unverified , 07/29/12) Subjective improving Objective Last 24 Hour Vital Signs Date Time Temp Pulse Resp B/P (MAP) Pulse Ox O2 Delivery O2 Flow Rate FiO2 02/24/20 12:15 73 116/69 02/24/20 12:00 97.9 73 16 116/69 (85) 98 02/24/20 09:00 Room Air 02/24/20 08:14 75 116/59 02/24/20 08:00 97.3 75 20 116/59 (78) 99 02/24/20 04:00 97.8 73 20 120/67 (84) 99 02/24/20 00:00 97.6 71 18 115/60 (78) 100 02/23/20 21:00 Room Air 02/23/20 20:00 97.7 65 16 126/70 (88) 96 02/23/20 19:27 98 Nasal Cannula 2.0 28 02/23/20 17:06 79 128/74 02/23/20 16:14 98.2 79 17 128/74 (92) 97 02/23/20 13:45 75 122/73 Intake and Output 02/23/20 02/24/20 19:00 07:00 Intake Total 800 ml 500 ml Balance 800 ml 500 ml Intake Oral 800 ml 500 ml # Voids 2 3 Height (Feet): 5 Height (Inches): 11.00 Weight (Pounds): 236 General Appearance: alert EENT: PERRL/EOMI Neck: supple Cardiovascular: regular rhythm Respiratory/Chest: lungs clear Abdomen: non tender, soft 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
--- NOTE | 2020-02-24 14:13 | Cardiac Electrophysiology PN ---
Assessment/Plan Assessment/Plan 1. Episodes of palpitation/ SVT at rate 200?. Etiology is not clear at this time as it was not documented. EF 60% On Cardizem 60 mg three times daily. Likely will need EPS at [facility] 2. Hyperlipidemia, on Lipitor. 3. History of lung cancer. She is scheduled for biopsy by Dr. Shepard on 03/06/2020 and had a preop evaluation at [facility] with an echo and stress test.FU Dr Geovanna KLINE RN Subjective Subjective Alert in NAD. No CP or SOB. No recurrence of SVT. Had марина down to 50s. DC home pending. Had another episode of palpitations but was short and she wasn't on tele at the time. Objective Last 24 Hour Vital Signs Date Time Temp Pulse Resp B/P (MAP) Pulse Ox O2 Delivery O2 Flow Rate FiO2 02/24/20 12:15 73 116/69 02/24/20 12:00 97.9 73 16 116/69 (85) 98 02/24/20 09:00 Room Air 02/24/20 08:14 75 116/59 02/24/20 08:00 97.3 75 20 116/59 (78) 99 02/24/20 04:00 97.8 73 20 120/67 (84) 99 02/24/20 00:00 97.6 71 18 115/60 (78) 100 02/23/20 21:00 Room Air 02/23/20 20:00 97.7 65 16 126/70 (88) 96 02/23/20 19:27 98 Nasal Cannula 2.0 28 02/23/20 17:06 79 128/74 02/23/20 16:14 98.2 79 17 128/74 (92) 97 Intake and Output 02/23/20 02/24/20 19:00 07:00 Intake Total 800 ml 500 ml Balance 800 ml 500 ml Intake Oral 800 ml 500 ml # Voids 2 3 Objective HEAD AND NECK: Shows no JVD. LUNGS: Clear. CARDIOVASCULAR: Regular S1 and S2 with no gallop or murmur. ABDOMEN: Soft. EXTREMITIES: No pitting edema. Cuco Garcia MD Feb 24, 2020 14:13
--- NOTE | 2020-02-26 12:14 | Discharge Summary ---
Discharge Summary Discharge Summary _ DATE OF ADMISSION: 02/19/2020 DATE OF DISCHARGE: 02/24/2020 DISCHARGED BY: Dr. Cadena REASON FOR ADMISSION: 69 years old female with past medical history of lung cancer, coronary artery disease , status post 2 stents placement in 2019, COPD, hypertension, was walking from her bathroom , when she felt sudden onset of palpitations. Patient wears a pulse oximetry monitor on a routine basis , which also had a heart rate monitor. Patient stated that the heart rate reading was in 200s. Patient reported that she had an episode like this years before , which resolved spontaneously. This time episode lasted several minutes before self resolving. She denied fever or chills. She denied chest pain, shortness of breath. No cough , no congestion. No back pain. No abdominal pain, nausea , vomiting or diarrhea. No dysuria. Upon evaluation patient was tachycardic with heart rate 129 , significantly hypertensive with blood pressure 182/93 , pulse oximetry was stable on room air . EKG revealed sinus tachycardia , no acute ischemic changes. Troponin negative Laboratory work-up showed mild leukocytosis WBC 11.8 ,hemoglobin 10.7 ,hematocrit 24.4, platelet count 264. Stable electrolytes. BUN 20, creatinine 1.8 Glucose 128 Stable LFT Chest x-ray revealed no acute cardiopulmonary pathology . In emergency department patient was placed on supplemental oxygen via nasal cannula, pulse oximetry improved,. Patient received a liter of fluid and admitted for further management. 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 Boggs pulmonary Dr. [place] psychiatrist [facility]: Patient admitted initially to monitored floor. Patient with episode of palpitation/SVT at rate of 200 , however etiology was not clear, since it was not documented. Patient was placed on Cardizem 60 mg 3 times a day. Patient was on heparin drip. Per [employer]er [employer] backhoe , patient likely will benefit from EPS at [facility]. Statin and antiplatelet therapy with aspirin continued. Echocardiogram demonstrated preserved ejection fraction of 55 to 60% , no evidence of left ventricular hypertrophy. No evidence of wall motion abnormality . Right ventricular systolic pressure of 44, consistent with a mild pulmonary hypertension. Patient spontaneously converted to sinus rhythm. Blood pressure was closely monitored. With initiation of Cardizem, blood pressure stabilized, and initial hypertensive urgency resolved. Patient already was scheduled for 03/06/[address] guided biopsy and had a preoperative evaluation at [facility] with an ECHO and stress test. Patient also follows up by [facility] for pelvic mass. Supplemental oxygen titrated to keep pulse oximetry above 92% . Pulmonary toilet and inhalers provided as per zigzag elastic attacher. Patient has oxygen and inhalers at home . Renal parameters and electrolytes were closely monitored, nephrotoxics were avoided. Creatinine trended down from 1.8 to 1.6 GI prophylaxis provided. Psychiatrist seen and evaluated patient. Patient started on anxiolytic. Reality orientation and supportive therapy provided. Patient clinically stabilized and was ready for discharge home. FINAL DIAGNOSES: End-stage COPD Hypoxemia SVT- spontaneously resolved Hypertension Hyperlipidemia Lung mass Pelvic mass Anxiety disorder DISCHARGE MEDICATIONS: See Medication Reconciliation list. DISCHARGE INSTRUCTIONS: Patient was discharged home. Follow-up with the primary care provider in 1 week. I have been assigned to dictate discharge summary for this account. I was not involved in the patient's management. Laurel Villafuerte NP Feb 26, 2020 12:14
== END 2020-02-24 13:03 | disposition home or self-care (01) | DRG 308 ==
LOC: EDBD 19:35 → EMR 19:53 → 2E 21:04 → EDBEDREQ 23:47 → 2E 02-20 05:25 → 4E 02-22 17:55
DX: I47.1 Supraventricular tachycardia (principal); J96.21 Acute and chronic respiratory failure with hypoxia; C34.90 Malignant neoplasm of unspecified part of unspecified bronchus or lung; I48.91 Unspecified atrial fibrillation; J44.9 Chronic obstructive pulmonary disease, unspecified; I11.0 Hypertensive heart disease with heart failure; I50.9 Heart failure, unspecified; I25.10 Atherosclerotic heart disease of native coronary artery without angina pectoris; E11.9 Type 2 diabetes mellitus without complications; Z79.84 Long term (current) use of oral hypoglycemic drugs; Z79.82 Long term (current) use of aspirin; Z87.891 Personal history of nicotine dependence; E78.5 Hyperlipidemia, unspecified; R19.00 Intra-abdominal and pelvic swelling, mass and lump, unspecified site; F41.9 Anxiety disorder, unspecified; K21.9 Gastro-esophageal reflux disease without esophagitis; I27.20 Pulmonary hypertension, unspecified; Z89.422 Acquired absence of other left toe(s); Z95.5 Presence of coronary angioplasty implant and graft
CPT/HCPCS: 36415; 71045; 80048; 80053; 83880; 84439; 84443; 84484; 85025; 85379; 85610; 85730; 87040; 93005; 93306; 96360; 99291; J7030; U0002